=== PATIENT | female | born 1985 | race Caucasian/White ===

== ENCOUNTER → 2018-02-04 | Outpatient (CLI) | payer OTHER ==
--- NOTE | 2018-02-04 16:27 | US ---
EXAMINATION TYPE: Transabdominal DATE OF EXAM: 07/15/17 COMPARISON: NONE CLINICAL HISTORY: Z36 CONFIRM DATES. UNKNOWN DATES EXAM PERFORMED: OBTA EXAM MEASUREMENTS: GESTATIONAL AGE / DATING Physician Established: Not yet established Dates by LMP: LMP unknown Dates by First Scan: No previous this is first scan Dates by Current Scan for: (8 weeks/3 days) EDC: 09/13/2018 MATERNAL ANATOMY Uterus: 10.0 x 7.2 x 6.2cm Right Ovary: not seen due to enlarging UT and bowel gas Left Ovary: 3.7 x 2.3 x 1.7cm Post CDS / Adnexa: wnl Presence of free fluid: no Presence of corpus luteal cyst: not seen Presence of subchorionic bleed: no GESTATION / SURVEY CRL: 1.9 (8 weeks/3 days) MSD: wnl Yolk Sac (normal less than 6mm): 0.3cm Heart Rate: 163 bpm Rhythm: Normal IUP: Viable IUP Date of LMP: unknown IMPRESSION: Single viable intrauterine corresponding to ultrasound age of 8 weeks 3 days with estimated date of delivery 09/13/2018
== END | disposition home or self-care (01) ==
LOC: RADUSWWP 14:40
PROVIDERS: ATTEND Obstetrics & Gynecology
DX: Z36.89 Encounter for other specified antenatal screening (principal)
CPT/HCPCS: 76801

== ENCOUNTER 2018-02-23 17:32 | Emergency (ER) | payer OTHER ==
[2018-02-23 17:52] VITALS: RESP 18; TEMP 98.3
[2018-02-23 18:44] LABS: Basophils # (A) 0.1 k/uL (0-0.2); Basophils % (A) 1 %; Eosinophils # (A) 0.2 k/uL (0-0.7); Eosinophils % (A) 2 %; HCT 38.4 % (34.0-46.0); HGB 13.6 gm/dL (11.4-16.0); Lymphocytes # (A) 1.8 k/uL (1.0-4.8); Lymphocytes % (A) 21 %; MCH 33.2 pg (25.0-35.0); MCHC 35.5 g/dL (31.0-37.0); MCV 93.6 fL (80.0-100.0); Mean Platelet Volume 6.2; Monocytes # (A) 0.3 k/uL (0-1.0); Monocytes % (A) 3 %; Neutrophils # (A) 6.5 k/uL (1.3-7.7); Neutrophils % (A) 73 %; Platelet Count 321 k/uL (150-450); RBC 4.11 m/uL (3.80-5.40); RDW 12.4 % (11.5-15.5); WBC 8.9 k/uL (3.8-10.6)
--- NOTE | 2018-02-23 18:49 | ED ---
Female Urogenital HPI - General Chief complaint: Vaginal Bleeding Stated complaint: 12wks preg, cramping Time Seen by Provider: 02/23/18 18:10 Source: patient, RN notes reviewed Mode of arrival: ambulatory Limitations: no limitations - History of Present Illness Initial comments: 33-year-old female presents emergency Department chief complaint vaginal bleeding early . Patient states started at work today states that is very faint red to pink color. Patient states that she did have some cramping that has subsided. Patient states that she is A0 currently 12 weeks . Her MAGAZINE KEEPER is Dr. Benítez. Patient states that she's had no comp patients this point during this . She does take vitamin no other medications. Denies fever, chills, nausea, vomiting, dysuria - Related Data Allergies Allergy/AdvReac Type Severity Reaction Status Date / Time No Known Allergies Allergy Verified 02/23/18 17:52 Review of Systems ROS Statement: Those systems with pertinent positive or pertinent negative responses have been documented in the HPI. ROS Other: All systems not noted in ROS Statement are negative. Past Medical History Past Medical History: No Reported History History of Any Multi-Drug Resistant Organisms: None Reported Additional Past Surgical History / Comment(s): eye surgery to correct muscles Past Psychological History: Anxiety, Depression Smoking Status: Current every day smoker Past Alcohol Use History: Rare Past Drug Use History: None Reported General Exam Limitations: no limitations General appearance: alert, in no apparent distress Head exam: Present: atraumatic, normocephalic, normal inspection Respiratory exam: Present: normal lung sounds bilaterally. Absent: respiratory distress, wheezes, rales, rhonchi, stridor Cardiovascular Exam: Present: regular rate, normal rhythm, normal heart sounds. Absent: systolic murmur, diastolic murmur, rubs, gallop, clicks GI/Abdominal exam: Present: soft, normal bowel sounds. Absent: distended, tenderness, guarding, rebound, rigid Back exam: Absent: CVA tenderness (R), CVA tenderness (L) Skin exam: Present: warm, dry, intact, normal color. Absent: rash Course Vital Signs 02/23/18 02/23/18 17:49 19:52 Temperature 98.3 F Pulse Rate 85 77 Respiratory 18 18 Rate Blood Pressure 128/74 124/74 O2 Sat by Pulse 100 98 Oximetry Medical Decision Making - Medical Decision Making 32-year-old female presented emergency from for abdominal pain, cramping vaginal bleeding early . Patient had ultrasound lab work which shows demise. Patient states discussed with her MAGAZINE KEEPER Dr. Benítez who recommends the patient follow-up tomorrow morning in office she is remain nothing by mouth after midnight and decided D&C tomorrow. Patient is stable updated on results. Patient has a positive blood type and does not require RhoGAM. - Lab Data Result diagrams: 02/23/18 18:33 Lab Results 02/23/18 02/23/18 02/23/18 Range/Units 18:33 18:33 18:33 WBC 8.9 (3.8-10.6) k/uL RBC 4.11 (3.80-5.40) m/uL Hgb 13.6 (11.4-16.0) gm/dL Hct 38.4 (34.0-46.0) % MCV 93.6 (80.0-100.0) fL MCH 33.2 (25.0-35.0) pg MCHC 35.5 (31.0-37.0) g/dL RDW 12.4 (11.5-15.5) % Plt Count 321 (150-450) k/uL Neutrophils % 73 % Lymphocytes % 21 % Monocytes % 3 % Eosinophils % 2 % Basophils % 1 % Neutrophils # 6.5 (1.3-7.7) k/uL Lymphocytes # 1.8 (1.0-4.8) k/uL Monocytes # 0.3 (0-1.0) k/uL Eosinophils # 0.2 (0-0.7) k/uL Basophils # 0.1 (0-0.2) k/uL HCG, Quant 5527.7 mIU/mL Urine Color Urine Appearance (Clear) Urine pH (5.0-8.0) Ur Specific [place] (1.001-1.035) Urine Protein (Negative) Urine Glucose (UA) (Negative) Urine Ketones (Negative) Urine Blood (Negative) Urine Nitrite (Negative) Urine Bilirubin (Negative) Urine Urobilinogen (<2.0) mg/dL Ur Leukocyte Esterase (Negative) Urine RBC (0-5) /hpf Urine WBC (0-5) /hpf Urine Mucus (None) /hpf Blood Type A Positive Blood Type Recheck ABR ONLY 02/23/18 Range/Units 18:45 WBC (3.8-10.6) k/uL RBC (3.80-5.40) m/uL Hgb (11.4-16.0) gm/dL Hct (34.0-46.0) % MCV (80.0-100.0) fL MCH (25.0-35.0) pg MCHC (31.0-37.0) g/dL RDW (11.5-15.5) % Plt Count (150-450) k/uL Neutrophils % % Lymphocytes % % Monocytes % % Eosinophils % % Basophils % % Neutrophils # (1.3-7.7) k/uL Lymphocytes # (1.0-4.8) k/uL Monocytes # (0-1.0) k/uL Eosinophils # (0-0.7) k/uL Basophils # (0-0.2) k/uL HCG, Quant mIU/mL Urine Color Yellow Urine Appearance Clear (Clear) Urine pH 6.0 (5.0-8.0) Ur Specific [place] 1.008 (1.001-1.035) Urine Protein Negative (Negative) Urine Glucose (UA) Negative (Negative) Urine Ketones Trace H (Negative) Urine Blood Trace H (Negative) Urine Nitrite Negative (Negative) Urine Bilirubin Negative (Negative) Urine Urobilinogen <2.0 (<2.0) mg/dL Ur Leukocyte Esterase Negative (Negative) Urine RBC 1 (0-5) /hpf Urine WBC 2 (0-5) /hpf Urine Mucus Rare H (None) /hpf Blood Type Blood Type Recheck Disposition Clinical Impression: Miscarriage Disposition: HOME SELF-CARE Condition: Stable Instructions: Miscarriage (ED) Additional Instructions: Please return to the Emergency Department if symptoms worsen or any other concerns. Do not eat or drink after midnight. Follow a MAGAZINE KEEPER's office first thing in the morning Is patient prescribed a controlled substance at d/c from ED?: No Referrals: Mally Shepard MD [Primary Care Provider] - 1-2 days Time of Disposition: 20:15
[2018-02-23 18:54] LABS: Appearance,Urine Clear (Clear); Bilirubin,Urine Negative (Negative); Blood,Urine Trace (Negative); Color,Urine Yellow; Glucose,Urine (UA) Negative (Negative); Ketones,Urine Trace (Negative); Leukocyte Esterase,Urine Negative (Negative); Mucus,Urine Rare /hpf; Nitrite,Urine Negative (Negative); Protein,Urine Negative (Negative); RBC,Urine 1 /hpf (0-5); Specific Gravity,Urine 1.008 (1.001-1.035); Urobilinogen,Urine <2.0 mg/dL (<2.0); WBC,Urine 2 /hpf (0-5)
--- NOTE | 2018-02-23 19:25 | US ---
EXAMINATION TYPE: Transabdominal DATE OF EXAM: 07/15/17 COMPARISON: US dated 02/04/2018 CLINICAL HISTORY: Pain. Spotting x 1 day, 1 EXAM PERFORMED: Transabdominal (TA) EXAM MEASUREMENTS: GESTATIONAL AGE / DATING Physician Established: (11 weeks/1 days) EDC: 09/13/2018 Dates by LMP: Unknown Dates by First Scan: (11 weeks/1 days) EDC: 09/13/2018 Dates by Current Scan for: (8 weeks/6 days) EDC: 09/29/2018 MATERNAL ANATOMY Uterus: 9.1 x 6.2 x 7.1cm, anteverted Right Ovary: 3.1 x 1.7 x 1.8cm Left Ovary: 3.4 x 1.6 x 1.5cm Post CDS / Adnexa: wnl Presence of free fluid: no Presence of corpus luteal cyst: not seen Presence of subchorionic bleed: no GESTATION / SURVEY CRL: 2.2cm (8 weeks/6 days) Yolk Sac (normal less than 6mm): not seen IUP: Demise Date of LMP: Unknown Beta HcG (if available): Not available at time of exam. No heart motion noted on color Doppler imaging IMPRESSION: Findings suggest demise, correlate
[2018-02-23 19:53] VITALS: BP 124/74; PULSE 77
== END 2018-02-23 20:20 | disposition home or self-care (01) ==
LOC: EC 17:32
DX: O03.9 Complete or unspecified spontaneous abortion without complication (principal); O99.331 Smoking (tobacco) complicating pregnancy, first trimester; F17.200 Nicotine dependence, unspecified, uncomplicated; Z3A.12 12 weeks gestation of pregnancy
CPT/HCPCS: 36415; 76801; 81001; 84702; 85025; 86900; 86901; 99284

== ENCOUNTER → 2018-10-23 | Outpatient (CLI) | payer OTHER ==
--- NOTE | 2018-10-23 16:21 | US ---
EXAMINATION TYPE: US OB >= 14 wk fetus DATE OF EXAM: 10/23/2018 COMPARISON: None CLINICAL HISTORY: O26.842 UTERINE SIZE DATE DISCREPANCY TECHNIQUE: Transabdominal (TA) GESTATIONAL AGE / DATING Physician Established: (22 weeks/3 days) EDC: 02/23/19 Dates by LMP: unknown Dates by First Scan: No previous this is first scan Dates by Current Scan: (21 weeks/5 days) EDC: 02/28/19 SURVEY IUP: Single PLACENTA: Anterior PREVIA: No Previa CATE: 15.0 cm CERVICAL LENGTH (transabdominal: norm > 3.0cm): 3.4 cm BIOMETRY PRESENTATION: Breech BPD: 5.2 cm 21 weeks / 6 days HC: 19.7 cm 21 weeks / 6 days AC: 17.5 cm 22 weeks / 3 days FL: 3.8 cm 22 weeks / 0 days ESTIMATED WEIGHT IN GRAMS: 482 grams ESTIMATED WEIGHT IN LBS/OZ: 1 lbs. 1 oz. WEIGHT PERCENTAGE BASED ON ESTABLISHED DATES: 31.% HC/AC: 1.1 FL/AC: 21.5 HEART RATE: 152 bpm RHYTHM: Normal IMPRESSION: 1. Single intrauterine gestation estimated at 21 weeks 5 days gestation based on the current ultrasou nd. Correlate this with her physician established dating of 22 weeks 3 days. 2. Cardiac activity measures 152 bpm.
== END | disposition home or self-care (01) ==
LOC: RADUSWWP 10:26
PROVIDERS: ATTEND Obstetrics & Gynecology
DX: O26.842 Uterine size-date discrepancy, second trimester (principal); Z3A.21 21 weeks gestation of pregnancy
CPT/HCPCS: 76805

== ENCOUNTER 2020-07-17 15:23 | Emergency (ER) | payer OTHER ==
[2020-07-17 15:34] VITALS: BP 136/71; PULSE 97; RESP 18; TEMP 98
--- NOTE | 2020-07-17 15:43 | ED ---
General Adult HPI - General Chief complaint: Recheck/Abnormal Lab/Rx Stated complaint: tazed by police Time Seen by Provider: 07/17/20 15:33 Source: patient, EMS Mode of arrival: EMS Limitations: no limitations - History of Present Illness Initial comments: Tiki 5-year-old female who presents to the emergency room today via ambulance in police custody. Patient's complaining of pain and having teaser wires stuck in her skin. - Related Data Previous Rx's Medication Instructions Recorded Ibuprofen [Motrin] 600 mg PO Q6HR PRN #30 tab 02/25/18 Allergies Allergy/AdvReac Type Severity Reaction Status Date / Time No Known Allergies Allergy Verified 07/17/20 15:33 Review of Systems ROS Statement: Those systems with pertinent positive or pertinent negative responses have been documented in the HPI. ROS Other: All systems not noted in ROS Statement are negative. Skin: Reports: other (Tazer wire and left upper chest and left upper abdomen) Past Medical History Past Medical History: No Reported History History of Any Multi-Drug Resistant Organisms: None Reported Additional Past Surgical History / Comment(s): eye surgery to correct muscles Past Psychological History: Anxiety, Depression Past Alcohol Use History: Rare Past Drug Use History: None Reported General Exam - General Exam Comments Initial Comments: Physical Exam GENERAL: Patient is well-developed and well-nourished. Patient is nontoxic and well-hydrated Crying, upset HENT: Normocephalic, Atraumatic. EYES: PERRL, EOMI PULMONARY: Unlabored respirations. No audible rales rhonchi or wheezing was noted. CARDIOVASCULAR: Tachycardiac, regular ABDOMEN: Soft and nontender with normal bowel sounds. SKIN: Tazer dart in left upper chest wall and left upper quadrant : Deferred NEUROLOGIC: Patient is alert and oriented x3. Moving all extremities spontaneously MUSCULOSKELETAL: Normal extremities with adequate strength and full range of motion. No lower extremity swelling or edema. No calf tenderness. PSYCHIATRIC: Appropriate Tearful and upset Limitations: no limitations Course Vital Signs 07/17/20 15:26 Temperature 98.0 F Pulse Rate 97 Respiratory 18 Rate Blood Pressure 136/71 O2 Sat by Pulse 99 Oximetry Medical Decision Making - Medical Decision Making Patient was seen and evaluated Tazer darts were removed Patient reports Tetanus is up to date CXR obtained, no evidence of pneumothorax Patient to be discharged in police custody Disposition Clinical Impression: Taser injury Disposition: HOME SELF-CARE Condition: Stable Instructions (If sedation given, give patient instructions): Puncture Wound (DC) Is patient prescribed a controlled substance at d/c from ED?: No Referrals: Mally Shepard MD [Primary Care Provider] - 1-2 days
--- NOTE | 2020-07-17 15:50 | XR ---
EXAMINATION TYPE: XR chest 2V DATE OF EXAM: 07/17/2020 COMPARISON: NONE HISTORY: Chest pain TECHNIQUE: Frontal and lateral views of the chest are obtained. FINDINGS: There is no focal air space opacity. No evidence for pneumothorax. No pleural effusion. The cardiac silhouette size is within normal limits. The osseous structures are grossly intact. IMPRESSION: 1. No acute cardiopulmonary process.
== END 2020-07-17 16:05 | disposition home or self-care (01) ==
LOC: EC 15:23
DX: T75.4XXA Electrocution, initial encounter (principal); W86.8XXA Exposure to other electric current, initial encounter
CPT/HCPCS: 71046; 99283

== ENCOUNTER → 2020-09-25 | Outpatient (CLI) | payer OTHER ==
--- NOTE | 2020-09-25 16:32 | XR ---
EXAMINATION TYPE: XR KUB DATE OF EXAM: 09/25/2020 4:23 PM CLINICAL HISTORY: Left-sided calculus. TECHNIQUE: Two supine KUB images of the abdomen are obtained. COMPARISON: None. FINDINGS: There is 14 mm calculus on long axis at the L3 vertebral body level presumed mid to lower p ole level. There is 5 mm calculus upper pole right kidney at L2 vertebral body level presumed upper t o mid pole level. There is single left sided pelvic phlebolith. Gas seen in nondistended stomach. Gas is seen in non-distended small bowel loops. Gas and fecal mater ial is seen in non-distended colon. Visualized lung bases are clear. Visualized osseous structures ar e intact. Overlying metallic umbilical ligament. IMPRESSION: As above.
== END | disposition home or self-care (01) ==
LOC: RADXRMAIN 16:05
PROVIDERS: ATTEND Urology
DX: N20.0 Calculus of kidney (principal)
CPT/HCPCS: 74018

== ENCOUNTER → 2020-10-06 | Outpatient (CLI) | payer OTHER ==
[2020-10-06 14:18] LABS: Basophils # (A) 0.1 k/uL (0-0.2); Basophils % (A) 1 %; Eosinophils # (A) 0.3 k/uL (0-0.7); Eosinophils % (A) 3 %; HCT 40.2 % (34.0-46.0); HGB 13.9 gm/dL (11.4-16.0); Lymphocytes # (A) 2.4 k/uL (1.0-4.8); Lymphocytes % (A) 24 %; MCH 32.8 pg (25.0-35.0); MCHC 34.5 g/dL (31.0-37.0); MCV 95.2 fL (80.0-100.0); Mean Platelet Volume 6.7; Monocytes # (A) 0.3 k/uL (0-1.0); Monocytes % (A) 3 %; Neutrophils # (A) 6.9 k/uL (1.3-7.7); Neutrophils % (A) 68 %; Platelet Count 286 k/uL (150-450); RBC 4.22 m/uL (3.80-5.40); RDW 12.3 % (11.5-15.5); WBC 10.1 k/uL (3.8-10.6)
[2020-10-06 14:30] LABS: Appearance,Urine Cloudy (Clear); Bacteria,Urine Rare /hpf; Bilirubin,Urine Negative (Negative); Blood,Urine Negative (Negative); Budding Yeast,Urine Few /hpf; Color,Urine Yellow; Glucose,Urine (UA) Negative (Negative); Ketones,Urine Negative (Negative); Leukocyte Esterase,Urine Negative (Negative); Mucus,Urine Rare /hpf; Nitrite,Urine Negative (Negative); PH, Urine 7.5 (5.0-8.0); Protein,Urine Negative (Negative); RBC,Urine 1 /hpf (0-5); Specific Gravity,Urine 1.013 (1.001-1.035); Squamous Epithelial Cell,Urine <1 /hpf (0-4); Urobilinogen,Urine <2.0 mg/dL (<2.0); WBC,Urine 4 /hpf (0-5)
[2020-10-06 14:39] LABS: African American GFR (CKD) >90 (>60 ml/min/1.73 sqM); Anion Gap 7 mmol/L; Blood Urea Nitrogen 14 mg/dL (7-17); Calcium 9.5 mg/dL (8.4-10.2); Carbon Dioxide 30 mmol/L (22-30); Chloride 105 mmol/L (98-107); Glucose 75 mg/dL (74-99); Non-African American GFR(CKD) >90 (>60 ml/min/1.73 sqM); Sodium 142 mmol/L (137-145)
== END | disposition home or self-care (01) ==
LOC: LABPAT 13:30
PROVIDERS: ATTEND Urology
DX: Z01.812 Encounter for preprocedural laboratory examination (principal); N20.1 Calculus of ureter
CPT/HCPCS: 80048; 81001; 85025; 87086

== ENCOUNTER 2020-10-13 | Day surgery (SDC) | payer OTHER | END 2020-10-13 18:52 | disposition home or self-care (01) | DX: N20.1 Calculus of ureter (principal) | CPT/HCPCS: 81025; 82365; 74018; 52344; 52332; C2625; C1894; C1769 ×2; J2250; J1100; J0690; J2405; J2001; J3010; J1885; J2704; Q9967; J1170 ==

== ENCOUNTER → 2020-11-20 | Outpatient (CLI) | payer OTHER ==
--- NOTE | 2020-11-20 18:09 | XR ---
EXAMINATION TYPE: XR KUB DATE OF EXAM: 11/20/2020 Comparison: 10/13/2020 Clinical History: 35-year-old female N20.1 URETERAL CALCULUS Findings: 5 mm calcification at the right mid abdomen. The larger 1.3 cm calculus left mid abdomen seen previou sly is no longer identified. Stable small phlebolith in the inferior left side of the pelvis. Nonobstructive bowel gas pattern. Mild scattered stool. Impression: The previous 1.3 cm left renal calculus is no longer seen. 5 mm right renal calculus unchanged.
== END | disposition home or self-care (01) ==
LOC: RADXRMAIN 13:08
PROVIDERS: ATTEND Urology
DX: N20.0 Calculus of kidney (principal)
CPT/HCPCS: 74018

== ENCOUNTER → 2021-12-25 | Outpatient (CLI) | payer OTHER ==
--- NOTE | 2021-12-25 12:47 | XR ---
EXAMINATION TYPE: XR KUB DATE OF EXAM: 12/25/2021 12:24 PM CLINICAL HISTORY: Kidney calculus. TECHNIQUE: Single supine KUB image of the abdomen is obtained. COMPARISON: None. PACS downtime. FINDINGS: There is 5 mm calculus right kidney upper to midpole level just below the 12th rib thought present. Single inferior left-sided pelvic phlebolith. Overall nonobstructive bowel gas pattern. Visualized osseous structures are intact. Tubular gas fille d structure lower pelvis just above pubic symphysis likely reflects tampon. Osseous structures are in tact. IMPRESSION: As above.
== END | disposition home or self-care (01) ==
LOC: RADXRMAIN 12:02
PROVIDERS: ATTEND Urology
DX: N20.0 Calculus of kidney (principal)
CPT/HCPCS: 74018

== ENCOUNTER → 2021-12-26 | Outpatient (CLI) | payer OTHER ==
[2021-12-26 17:58] LABS: Basophils # (A) 0.08 X 10*3/uL (0.00-0.10); Basophils % (A) 0.9 %; Eosinophils # (A) 0.15 X 10*3/uL (0.04-0.35); Eosinophils % (A) 1.7 %; HCT 39.1 % (37.2-46.3); HGB 13.1 g/dL (12.0-15.0); Immature Grans, Automated 0.2 %; Lymphocytes # (A) 2.82 X 10*3/uL (0.90-5.00); Lymphocytes % (A) 32.8 %; MCH 31.9 pg (27.0-32.0); MCHC 33.5 g/dL (32.0-37.0); MCV 95.1 fL (80.0-97.0); Mean Platelet Volume 9.9 fL (9.5-12.2); Monocytes # (A) 0.47 X 10*3/uL (0.20-1.00); Monocytes % (A) 5.5 %; NRBC Per 100 WBC 0 /100 WBCS (0.0-0.0); Neutrophils # (A) 5.05 X 10*3/uL (1.80-7.70); Neutrophils % (A) 58.9 %; Platelet Count 289 X 10*3/uL (140-440); RBC 4.11 X 10*6/uL (4.10-5.20); RDW 11.9 % (11.5-14.5); WBC 8.59 X 10*3/uL (4.50-10.00)
[2021-12-26 20:44] LABS: Appearance,Urine Turbid (Clear); Bacteria,Urine None Seen /HPF (None Seen); Bilirubin,Urine Negative (Negative); Blood,Urine Negative (Negative); Color,Urine Yellow (Yellow); Ketones,Urine Negative (Negative); Nitrite,Urine Negative (Negative); Specific Gravity,Urine 1.019 (1.001-1.030); Urobilinogen,Urine 0.2 (0.2,1.0)
== END | disposition home or self-care (01) ==
LOC: LABWHC1 14:25
PROVIDERS: ATTEND Urology
DX: Z01.812 Encounter for preprocedural laboratory examination (principal); N20.0 Calculus of kidney; R31.29 Other microscopic hematuria
CPT/HCPCS: 36415; 81001; 85025; 87086

== ENCOUNTER 2021-12-31 10:05 | Day surgery (SDC) | payer OTHER ==
[2021-12-28 08:23] VITALS: BMI 21.1
--- NOTE | 2021-12-30 08:39 | P.HPIHPCON ---
History of Present Illness H&P Date: 12/30/21 Chief Complaint: Right renal stone This is a 36-year-old female with history of recurrent kidney stones. She's been having symptomatic right flank pain, underwent a KUB demonstrated evidence of 5 mm right-sided upper pole renal stone. Option of ESWL versus ureteroscopy was discussed with her in details. She agreed to proceed with right-sided ESWL aware of risk which includes but not limited to bleeding, infection, renal hematoma, potential ineffectiveness of treatment. She understood all the risk and agreed to proceed Consent for Procedure: I have explained the operation/procedure to the patient, including the risks, benefits, side effects, alternative therapies (including not receiving the proposed treatment or service), the likelihood of the patient achieving his/her goals, and potential recuperation problems for the procedure/sedation/analgesia, as well as any blood products, if indicated. I also explained to the patient the risks, benefits and side effects of the alternatives, as well as the risks related to not receiving the proposed procedure, care, treatment, or services. Past Medical History Past Medical History: No Reported History Additional Past Medical History / Comment(s): KIDNEY STONES History of Any Multi-Drug Resistant Organisms: None Reported Additional Past Surgical History / Comment(s): eye surgery to correct muscles. LITHOTRIPSY W/STENTS LT SIDE Past Anesthesia/Blood Transfusion Reactions: No Reported Reaction Smoking Status: Current every day smoker - Past Family History Mother Family Medical History: No Reported History Medications and Allergies Home Medications Medication Instructions Recorded Confirmed Type No Known Home Medications 12/28/21 12/28/21 History Allergies Allergy/AdvReac Type Severity Reaction Status Date / Time No Known Allergies Allergy Verified 12/28/21 08:13 Surgical - Exam - General no distress, moderate pain - Eyes normal ocular movement, no pale - ENT normal nares, normal mucosa - Respiratory normal expansion, normal respiratory effort - Abdomen Abdomen: soft, non tender - Psychiatric oriented to time, oriented to person, oriented to place Assessment and Plan Assessment: 36-year-old female with history of a 5 mm right-sided upper pole stone -OR for right sided ESWL
--- NOTE | 2021-12-31 10:30 | XR ---
EXAMINATION TYPE: XR KUB DATE OF EXAM: 12/31/2021 COMPARISON: 12/25/2021 INDICATION: Kidney stones presurgical clearance TECHNIQUE: Single view abdomen supine view FINDINGS: There is a normal bowel gas pattern. Psoas margins are normal. No organomegaly is present. There may be a pair of adjacent 0.6 cm calcifications in the upper pole right kidney. No additional s uspicious calcifications are evident. IMPRESSION: 1. 0.6 cm calcifications upper pole right kidney
[2021-12-31] MEDS ORDERED: LACTATED RINGERS 1,000 ML IV ONE (10:52)
[2021-12-31] MEDS ORDERED: ONDANSETRON 4 MG/2 ML VIAL ONE (10:56)
[2021-12-31 10:57] VITALS: TEMP 97.9
[2021-12-31] MEDS ORDERED: fentaNYL (PF) 50 MCG/ML 2 ML AMP IVP ONE (10:58)
[2021-12-31] MEDS ORDERED: PROPOFOL 10 MG/ML 20 ML VIAL IV ONE (11:02)
[2021-12-31] MEDS ORDERED: MIDAZOLAM 2 MG/2 ML VIAL ONE (11:02)
[2021-12-31] MEDS ORDERED: ePHEDrine 50 MG/ML 1 ML VIAL ONE (11:02)
[2021-12-31] MEDS ORDERED: fentaNYL (PF) 50 MCG/ML 2 ML AMP ONE (11:02)
--- NOTE | 2021-12-31 11:45 | P.OP ---
Date of Procedure: 12/31/21 Preoperative Diagnosis: Right renal calculus Postoperative Diagnosis: Same Procedure(s) Performed: Right extracorporal shockwave lithotripsy (ESWL) Anesthesia: MAC Surgeon: Dmitry Bishop Estimated Blood Loss (ml): 0 IV fluids (ml): 300 Pathology: none sent Condition: stable Disposition: PACU Indications for Procedure: This is a 36-year-old female with history of recurrent kidney stones. She's been having symptomatic right flank pain, and a KUB demonstrated evidence of a 5 mm right-sided upper pole renal stone. Option of ESWL versus ureteroscopy was discussed with her in detail. She agreed to proceed with right-sided ESWL and comes for this reason. Operative Findings: Right upper pole renal calculus appeared to fragment well. Description of Procedure: The patient was taken to the operating room and placed on the Dornier Compact Delta II lithotripter in the supine position. The calculus was seen on biplanar fluoroscopy. Once the patient was properly positioned and sedated, lithotripsy was performed. The energy level was gradually increased per protocol, to an energy level of 4. After 200 shocks were administered, a 2 minute pause was instituted per protocol. A total of 2500 shocks were given at a rate of 80 shocks per minute. Fluoroscopy was utilized at a minimum to ensure proper positioning and determine the treatment status. The calculus changed in appearance, consistent with fragmentation. The patient tolerated the procedure well was taken to the recovery room in stable condition. Instructions were given to strain the urine, and the patient will follow-up within one week.
[2021-12-31 13:49] VITALS: BP 178/81; PULSE 93; RESP 17
== END 2021-12-31 14:00 | disposition home or self-care (01) ==
LOC: ORWHC2ENDO 10:05
PROVIDERS: ATTEND Urology
DX: N20.0 Calculus of kidney (principal); F12.90 Cannabis use, unspecified, uncomplicated; F41.8 Other specified anxiety disorders
CPT/HCPCS: 50590; 74018; J2250; J2405; J3010; J2704